=== PATIENT | female | born 1965 | race Caucasian/White ===

== ENCOUNTER 2017-01-04 00:15 | Emergency (ER) | payer SELFPAY ==
[~2017-01-04] VITALS: Ht 170.2 cm; Wt 57.7 kg
[~2017-01-04 00:15] MED LIST: IBUP100S PO; METH40TA9 PO; [UNRECOGNIZED DRUG - CODE] PO
[2017-01-04 00:24] VITALS: BP 111/70; PULSE 70; RESP 24; TEMP 97.9; O2SAT 98
[2017-01-04 02:50] VITALS: BP 92/57; PULSE 64; RESP 18; O2SAT 98
[2017-01-04 03:50] VITALS: BP 80/48; PULSE 54; RESP 18; O2SAT 96
[2017-01-04 04:35] VITALS: BP 114/52; RESP 18; O2SAT 96
[2017-01-04 04:50] VITALS: BP 85/51; PULSE 58; RESP 18; O2SAT 96
--- NOTE | 2017-01-04 06:04 | RADHPO ---
EXAM DATE/TIME: 01/04/2017 05:46 [facility] COMPARISON: No previous studies available for comparison. INDICATIONS : Left knee pain from injury today. MEDICAL HISTORY : Chronic obstructive pulmonary disease. SURGICAL HISTORY : Cholecystectomy. ENCOUNTER: Initial ACUITY: 1 day PAIN SCORE: 8/10 LOCATION: Left knee FINDINGS: 4 views left knee. Nondisplaced inferior pole horizontal patellar fracture. Large joint effusion. No evidence of joint narrowing. CONCLUSION: 1. Nondisplaced inferior pole horizontal patellar fracture. 2. Large joint effusion. Omar Dotson MD on January 04, 2017 at 6:01 Board Certified Radiologist. This report was verified electronically.
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
[2017-01-04 06:39] VITALS: BP 85/55; PULSE 83; RESP 16; O2SAT 96
== END 2017-01-04 08:30 | disposition home or self-care (01) ==
LOC: PHED 00:15
DX: S82.035A Nondisplaced transverse fracture of left patella, initial encounter for closed fracture (principal); J44.9 Chronic obstructive pulmonary disease, unspecified; W01.0XXA Fall on same level from slipping, tripping and stumbling without subsequent striking against object, initial encounter; Y99.8 Other external cause status
CPT/HCPCS: 73564; 99283; E0113; L1830

== ENCOUNTER 2017-12-09 23:04 | Emergency (ER) | payer SELFPAY ==
[~2017-12-09] VITALS: Ht 167.6 cm; Wt 59.3 kg
[2017-12-09 23:05] VITALS: BP 119/57; PULSE 74; RESP 18; TEMP 97.8; O2SAT 97
[2017-12-09] MEDS ORDERED: METH40TA PO (23:23)
[2017-12-10] MEDS ORDERED: IBUP-232 PO (01:42)
[2017-12-10] MEDS ORDERED: AMOX500T PO (01:42)
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
[2017-12-10] MEDS ORDERED: AMOXICILLIN 875 MG TAB PO ONE (01:45)
[2017-12-10] MEDS ORDERED: IBUPROFEN 800 MG TAB PO ONE (01:45)
== END 2017-12-10 01:57 | disposition home or self-care (01) ==
LOC: PHED 23:04
DX: K04.7 Periapical abscess without sinus (principal); F17.200 Nicotine dependence, unspecified, uncomplicated
CPT/HCPCS: 99283

== ENCOUNTER 2018-03-27 16:47 | Emergency (ER) | payer SELFPAY ==
[~2018-03-27] VITALS: Ht 167.6 cm; Wt 59.3 kg
[~2018-03-27 16:47] MED LIST changes: +AMOX500T PO; +IBUP-232 PO; -IBUP100S PO; +METH40TA PO; -METH40TA9 PO; -[UNRECOGNIZED DRUG - CODE] PO
[2018-03-27 16:50] VITALS: BP 145/65; PULSE 104; RESP 16; TEMP 98; O2SAT 99
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
[2018-03-27] MEDS ORDERED: IOHEXOL 350 MG/ML 10 ML VIAL (for RAD DIAG) IVCONTRAST ONE (19:45)
--- NOTE | 2018-03-27 19:54 | RADRPT ---
EXAM DATE: 03/27/2018 7:44 PM EDT AGE/SEX: 52 years / Female INDICATIONS: Throat pain. CLINICAL DATA: This is the patient's initial encounter. Patient reports that signs and symptoms have been present for 3 days and indicates a pain score of 6/10. MEDICAL/SURGICAL HISTORY: Carcinoma, lung. Tonsillectomy. RADIATION DOSE: 11.08 CTDI (mGy) COMPARISON: No prior [facility] exams available for comparison. TECHNIQUE: Helical acquisition was performed using a multirow detector CT scanner during the adminis tration of 75 ml Omnipaque 350 (iohexol) nonionic water-soluble contrast as a single exam dose. Usi ng automated exposure control and adjustment of the mA and/or kV according to patient size, radiation dose was kept as low as reasonably achievable to obtain optimal diagnostic quality images. FINDINGS: No mass identified within the neck. There is no cervical adenopathy. No airway obstructing lesions or foreign bodies. The visualized paranasal sinuses are clear. No acute bony abnormalities. Lung apices are clear. CONCLUSION: 1. No acute findings on neck CT. No pharyngeal mass identified. No abnormal fluid collections. Electronically signed by: Mo Parks MD 03/27/2018 7:52 PM EDT
[2018-03-27] MEDS ORDERED: AMOX500T PO (20:04)
== END 2018-03-27 20:13 | disposition home or self-care (01) ==
LOC: PHEFT 16:47
DX: J02.9 Acute pharyngitis, unspecified (principal); K13.70 Unspecified lesions of oral mucosa; M19.90 Unspecified osteoarthritis, unspecified site; J44.9 Chronic obstructive pulmonary disease, unspecified; G89.29 Other chronic pain; M25.551 Pain in right hip; F17.200 Nicotine dependence, unspecified, uncomplicated; Z85.42 Personal history of malignant neoplasm of other parts of uterus; Z85.118 Personal history of other malignant neoplasm of bronchus and lung
CPT/HCPCS: 70491; 99284; Q9967